=== PATIENT | male | born 1975 | race Caucasian/White ===

== ENCOUNTER 2023-07-26 18:05 | Emergency (ER) | payer SELFPAY ==
[2023-07-26 18:19] VITALS: BP 151/96; PULSE 105; RESP 20; TEMP 37.3; O2SAT 96; BMI 23.1
--- NOTE | 2023-07-26 18:20 | ED.GENADULT ---
HPI - General Adult General Chief complaint: Skin/Abscess/Foreign Body Stated complaint: cyst Time Seen by Provider: 07/26/23 21:26 Source: patient Mode of arrival: ambulatory Limitations: no limitations History of Present Illness HPI narrative: Patient is a 48 year old assigned male at with no reported medical history presenting to the emergency department today with a finger and buttock cyst. Patient states that over the last few days he has noticed his right ring finger swelling and has a cyst above his gluteal cleft. Patient denies any dizziness, lightheadedness, abdominal pain, nausea, vomiting, fever, chills, blurry vision, double vision, loss of vision, chest pain, difficulty breathing, shortness of breath, back pain, night sweats, pain with urination, increased urinary frequency, increased urinary urgency, blood in his urine or stool, syncope or a near syncopal episode, recent trauma or falls, bowel incontinence, bladder incontinence, bowel retention, bladder retention, or any other complaints at this time. Onset (ago): day(s) Location: buttocks and right (ring finger) Severity: mild Severity scale (1-10): 3 Quality: aching and dull Pain Consistency: constant Relieving factors: none Exacerbating factors: none Associated symptoms: denies other symptoms Treatments prior to arrival: none Related Data Allergies Allergy/AdvReac Type Severity Reaction Status Date / Time No Known Allergies Allergy Unverified 07/08/22 13:32 [No Known Allergies*] Review of Systems Constitutional: Constitutional: Reports no additional constitutional complaints, Denies chills, Denies fever(s) and Denies night sweats Eyes: Eyes: Reports no additional eye complaints, Denies blurry vision, Denies change in vision, Denies diplopia, Denies eye discharge, Denies loss of vision and Denies eye pain ENT: Denies dizziness Cardiovascular: Cardiovascular: Reports no additional cardiovascular complaints, Denies chest pain, Denies lightheadedness, Denies Loss of Consciousness and Denies dyspnea Respiratory: Respiratory: Reports no additional respiratory complaints and Denies dyspnea Gastrointestinal: Gastrointestinal: Reports no additional gastrointestinal complaints, Denies abdominal pain, Denies melena, Denies hematochezia, Denies change in bowel habits and Denies change in stool character Genitourinary: Genitourinary: Reports no additional male genitourinary complaints, Denies hematuria, Denies oliguria, Denies difficulty urinating, Denies dysuria, Denies urinary frequency, Denies urinary hesitancy, Denies urinary incontinence and Denies urinary urgency Musculoskeletal: Musculoskeletal: Reports no additional musculoskeletal complaints, Denies numbness and Denies tingling Comments: right ring finger swelling Integumentary/Breasts: Comments: swelling above the gluteal cleft Neurologic: Denies dizziness, Denies loss of vision, Denies numbness and Denies tingling Psychiatric: Psychiatric: Reports no additional psychiatric complaints Endocrine: Endocrine: Reports no additional endocrine complaints Hematologic/Lymphatic: Hematologic/Lymphatic: Reports no additional hematologic/lymphatic complaints Allergic/Immunologic: Allergic/Immunologic: Reports no additional allergic/immunologic complaints [facility] Past Medical History Attestation statement: The following information was validated with the patient. Source: old records reviewed and nursing notes reviewed Social History Social History Advance Directives: No Advance Directives Information Provided: No Physical Exam ED Vital Signs: Vital Signs - 24 hr 07/26/23 18:19 Temperature 99.1 F Pulse Rate 105 H Respiratory Rate 20 Blood Pressure 151/96 H Pulse Oximetry 96 Oxygen Delivery Method Room Air BMI result Body Mass Index 23.1 Const General: cooperative, no acute distress, alert and awake Nutritional Appearance: well nourished Orientation/consciousness: patient oriented x3 Limitations: no limitations HENMT Head: Yes normal to inspection and Yes atraumatic Ears: hearing grossly normal bilaterally and external ears normal General nose exam: Normal external nose present, no nasal discharge noted and no epistaxis Face and sinus: Yes normal facial exam, No abrasion and No laceration Mouth: Normal oral and palatal mucosa present, no drooling and no muffled voice Eyes General: appearance normal, both eyes and all related structures Periorbital: periorbital findings normal Eyelids: Yes eyelids normal Conjunctivae: conjunctivae normal Pupils: Equal, round and reactive pupils present EOM: EOMs intact bilaterally Neck Neck: Yes normal visual inspection, Yes full ROM and Yes no lymphadenopathy Chest Chest palpation & inspection: normal inspection of the chest Resp Effort & Inspection: normal respiratory effort and able to speak in complete sentences GI Inspection: Yes normal to inspection Neuro General: patient oriented x3 and moves all extremities Cranial nerves: Yes Equal, round and reactive pupils present Cognition (Neuro): normal cognition Motor exam (neuro): 5 motor strength present throughout Sensory Exam: Normal double simultaneous stimulation for sensation Coordination: [id number] test normal Extrem Other: mild swelling around the nail of the right ring finger General: Yes full ROM and Yes capillary refill normal Psych Appearance: grossly normal Mental Status: mental status grossly normal Affect: normal affect Attitude: cooperative Thought process: Normal thought process present Thought content: Normal thought content present Insight: Good insight present (Psych) Course Course Course Narrative: RME performed by Sangeetha Mendez PA-C. Patient is a 48 year old assigned male at presenting to the emergency department with right ring finger swelling and swelling above his gluteal cleft. Patient placed back in the waiting room pending room availability. Reevaluation(s) Reevaluation #1: Went to the patient's room twice and the nurse said patient left the ED. Medical Decision Making Medical Decision Making MDM Narrative: Patient is a 48 year old assigned male at with no reported medical history presenting to the emergency department today with right ring finger swelling and swelling above the gluteal cleft. Patient's limited physical exam performed in triage showed swelling around the nail of the right ring finger, consistent with a paronychia. Patient left the department without completing treatment. Patient left the department before myself or any of the other emergency clinicians could explain / review physical exam findings, need or lack thereof for additional testing, treatment options or plans, and need or lack thereof for procedures. Differential Diagnosis Differential Diagnoses: The differential diagnosis associated with the presentation includes Paronychia Pilonidal abscess Discharge Plan Discharge Clinical Impression: Abscess of skin or subcutaneous tissue Patient Disposition: Left W/O Completing Treatment Discharge Date/Time: 07/26/23 21:44
--- NOTE | 2023-07-26 21:42 | PC.NURSE ---
this nurse was apporached by RADHA Landis stated pt was not in room. this nurse entered room where it appeared pt had left the exam area- checked bathrooms and radiology- pt could not be located- server assistant aware, RADHA Landis aware
== END 2023-07-26 21:44 | disposition left against medical advice (07) ==
PROVIDERS: Emergency Provider Internal Medicine; PCP Internal Medicine
DX: L02.31 Cutaneous abscess of buttock (principal); L02.511 Cutaneous abscess of right hand
CPT/HCPCS: 99281

== ENCOUNTER 2024-06-26 19:09 | Emergency (ER) | payer MEDICAID, SELFPAY ==
[2024-06-26 19:13] VITALS: BP 117/85; PULSE 84; RESP 18; TEMP 36.7; O2SAT 98; BMI 21.5
== END 2024-06-26 23:31 | disposition left against medical advice (07) ==
LOC: HO.ED 21:58
PROVIDERS: Emergency Provider Emergency Medicine
DX: L02.416 Cutaneous abscess of left lower limb (principal)
CPT/HCPCS: 99281